=== PATIENT | female | born 1995 | race Asian ===

== ENCOUNTER 2023-01-30 18:21 | Observation (INO) | payer OTHER ==
[2023-01-30 18:30] VITALS: BMI 19.2
[2023-01-30 19:59] LABS: VENOUS O2 SATURATION 84.4 % (70-80); VENOUS PCO2 37.4 mmHg (38-52); VENOUS PH 7.38 (7.310-7.410)
[2023-01-30 20:15] LABS: CHLORIDE 110 mmol/L (98-107); POTASSIUM 3.9 mmol/L (3.5-5.1); SODIUM 139 mmol/L (136-145)
[2023-01-30 20:17] LABS: CALCIUM 8.9 mg/dL (8.5-10.1)
[2023-01-30 20:18] LABS: ALBUMIN 4.1 g/dl (3.4-5.0); ANION GAP 5 MMOL/L (8-16); BLOOD UREA NITROGEN 7.6 mg/dL (7-18); CO2 24 mmol/L (21-32); GLUCOSE,RANDOM 96 mg/dL (74-106); MAGNESIUM 2.1 mg/dL (1.8-2.4)
[2023-01-30 20:21] LABS: CREATININE 0.6 mg/dL (0.55-1.3); SGOT/AST 15 U/L (15-37); SGPT/ALT 23 U/L (13-61)
[2023-01-30 20:22] LABS: BILIRUBIN,TOTAL 0.2 mg/dL (0.2-1); TOT PROT 7.9 g/dl (6.4-8.2)
[2023-01-30 20:24] LABS: ALK PHOS 55 U/L (45-117)
[2023-01-30] MEDS ORDERED: ACETAMINOPHEN INJECTION 100 ML IVPB ONE (20:55)
[2023-01-30] MEDS ORDERED: KETOROLAC TROMETHAMINE 30 MG/1 ML VIAL ONE (20:55)
[2023-01-30] MEDS ORDERED: ACETAMINOPHEN 1000 MG/100 ML BAG IVPB ONE (20:56)
[2023-01-30] MEDS ORDERED: KETOROLAC TROMETHAMINE 15 MG/ML VIAL IVPUSH ONE (20:56)
[2023-01-30 20:59] LABS: EPI CELLS 10 /uL (0-25.1); HYALINE CASTS 0 /uL (0-3.1); PH,URINE 6.5 (5.0-8.0); URINE APPEARANCE CLEAR; URINE BACTERIA 101 /uL (0-1359); URINE BILIRUBIN NEGATIVE (NEGATIVE); URINE COLOR YELLOW; URINE GLUCOSE (UA) NEGATIVE (NEGATIVE); URINE KETONE NEGATIVE (NEGATIVE); URINE LEUK ESTERASE TRACE (NEGATIVE); URINE NITRITE NEGATIVE (NEGATIVE); URINE PROTEIN NEGATIVE (NEGATIVE); URINE RBC 1536 /uL (0-23.9); URINE UROBILINOGEN 0.2 mg/dL (0.2-1.0); URINE WBC 47 /uL (0-25.8)
[2023-01-30 21:22] LABS: BASO % 0.5 % (0-2.0); EOS % 0.8 % (0-4.5); HEMATOCRIT 33.5 % (32.4-45.2); HEMOGLOBIN 11.1 GM/dL (10.7-15.3); LYMPH % 37.8 % (8-40); MCH 26.8 pg (25.7-33.7); MEAN CELL VOLUME 81.1 fl (80-96); MONO % 5.5 % (3.8-10.2); NEUT % 55.4 % (42.8-82.8); PLATELET COUNT 215 10^3/uL (134-434); RBC 4.13 M/mm3 (3.60-5.2); RDW 14.9 % (11.6-15.6)
[2023-01-30 22:14] LABS: ERYTHROCYTE SEDIMENTATION RATE 10 mm/hr (0-20)
[2023-01-31 02:53] VITALS: RESP 18
[2023-01-31 10:37] LABS: BASO % 0.8 % (0-2.0); EOS % 1.4 % (0-4.5); HEMATOCRIT 32.5 % (32.4-45.2); HEMOGLOBIN 10.9 GM/dL (10.7-15.3); LYMPH % 36.5 % (8-40); MCHC 33.6 g/dl (32.0-36.0); MEAN CELL VOLUME 80.4 fl (80-96); MEAN PLT VOLUME 9.8 fl (7.5-11.1); MONO % 5.8 % (3.8-10.2); NEUT % 55.5 % (42.8-82.8); PLATELET COUNT 211 10^3/uL (134-434); RBC 4.05 M/mm3 (3.60-5.2); RDW 14.8 % (11.6-15.6); WHITE BLOOD COUNT 5.1 K/mm3 (4.0-10.0)
[2023-01-31 11:01] LABS: POTASSIUM 3.7 mmol/L (3.5-5.1)
[2023-01-31 11:05] LABS: CALCIUM 8.7 mg/dL (8.5-10.1)
[2023-01-31 11:06] LABS: ALBUMIN 3.7 g/dl (3.4-5.0); BLOOD UREA NITROGEN 9.6 mg/dL (7-18); MAGNESIUM 2.3 mg/dL (1.8-2.4)
[2023-01-31 11:08] LABS: CREATININE 0.6 mg/dL (0.55-1.3); PHOSPHOROUS 3.6 mg/dL (2.5-4.9)
[2023-01-31 11:09] LABS: TOT PROT 7.1 g/dl (6.4-8.2)
[2023-01-31 11:10] LABS: BILIRUBIN,TOTAL 0.4 mg/dL (0.2-1)
[2023-02-01 06:58] VITALS: TEMP 98
[2023-02-01] MEDS ORDERED: ACETAMINOPHEN 1000 MG/100 ML BAG IVPB PRN (07:57)
[2023-02-01] MEDS ORDERED: GABAPENTIN 300 MG CAPSULE PO SCH (10:00)
[2023-02-01 10:11] LABS: BASO % 0.6 % (0-2.0); EOS % 1.3 % (0-4.5); HEMATOCRIT 33.7 % (32.4-45.2); HEMOGLOBIN 11.5 GM/dL (10.7-15.3); LYMPH % 39.5 % (8-40); MCH 27.5 pg (25.7-33.7); MCHC 34.1 g/dl (32.0-36.0); MEAN CELL VOLUME 80.6 fl (80-96); MEAN PLT VOLUME 9.6 fl (7.5-11.1); MONO % 4.4 % (3.8-10.2); NEUT % 54.2 % (42.8-82.8); PLATELET COUNT 220 10^3/uL (134-434); RBC 4.18 M/mm3 (3.60-5.2); RDW 14.8 % (11.6-15.6)
[2023-02-01 10:24] LABS: CHLORIDE 112 mmol/L (98-107); POTASSIUM 3.9 mmol/L (3.5-5.1); SODIUM 141 mmol/L (136-145)
[2023-02-01 10:28] LABS: ANION GAP 7 MMOL/L (8-16); BLOOD UREA NITROGEN 8.4 mg/dL (7-18); CALCIUM 8.8 mg/dL (8.5-10.1); CO2 22 mmol/L (21-32); GLUCOSE,RANDOM 128 mg/dL (74-106)
[2023-02-01 10:32] LABS: CREATININE 0.6 mg/dL (0.55-1.3)
[2023-02-01] MEDS ORDERED: SODIUM CHLORIDE 500 ML IV STA (12:17)
[2023-02-01 15:07] VITALS: BP 99/61; PULSE 62
[2023-02-01] MEDS ORDERED: NORTRIPTYLINE HCL 25 MG CAPSULE PO SCH (22:00)
== END 2023-02-01 15:05 | disposition home or self-care (01) ==
LOC: JER 18:21 → JERBED 22:45 → J5S 01-31 02:38
PROVIDERS: ADMIT Internal Medicine; ATTEND Internal Medicine
PROC: 3E033NZ Introduction of Analgesics, Hypnotics, Sedatives into Peripheral Vein, Percutaneous Approach (ICD-10-PCS; principal; 2023-01-30)
PROC: 3E0333Z Introduction of Anti-inflammatory into Peripheral Vein, Percutaneous Approach (ICD-10-PCS; 2023-01-30)
PROC: 3E0337Z Introduction of Electrolytic and Water Balance Substance into Peripheral Vein, Percutaneous Approach (ICD-10-PCS; 2023-01-30)
DX: R20.0 Anesthesia of skin (principal); R20.2 Paresthesia of skin
CPT/HCPCS: 0241U-QW; 36415; 70553-TC; 72156-TC; 80048; 80053; 81003; 82803; 83735; 84100; 84443; 84703; 85025; 85651; 85730; 86038; 86140; 86225; 86235; 86431; 86618; 93005; 93010; 96374; 96375; 96376; 99285-25; A9579; G0378

== ENCOUNTER 2023-04-04 14:20 | Emergency (ER) | payer OTHER ==
[2023-04-04 14:26] VITALS: BP 99/60; PULSE 84; RESP 18; TEMP 98.3; BMI 18.8
[2023-04-04 15:34] LABS: BASO % 0.5 % (0-2.0); EOS % 0.8 % (0-4.5); HEMATOCRIT 34.6 % (32.4-45.2); HEMOGLOBIN 11.2 GM/dL (10.7-15.3); LYMPH % 36.6 % (8-40); MCH 26.5 pg (25.7-33.7); MCHC 32.5 g/dl (32.0-36.0); MEAN CELL VOLUME 81.5 fl (80-96); MONO % 5.7 % (3.8-10.2); NEUT % 56.4 % (42.8-82.8); PLATELET COUNT 223 10^3/uL (134-434); RBC 4.24 M/mm3 (3.60-5.2); RDW 13.9 % (11.6-15.6); WHITE BLOOD COUNT 6.7 K/mm3 (4.0-10.0)
[2023-04-04 15:44] LABS: POTASSIUM 3.9 mmol/L (3.5-5.1)
[2023-04-04 15:48] LABS: ALBUMIN 3.9 g/dl (3.4-5.0); BLOOD UREA NITROGEN 10.8 mg/dL (7-18); CALCIUM 8.7 mg/dL (8.5-10.1)
[2023-04-04 15:51] LABS: CREATININE 0.6 mg/dL (0.55-1.3)
[2023-04-04 15:53] LABS: BILIRUBIN,TOTAL 0.3 mg/dL (0.2-1); TOT PROT 7.5 g/dl (6.4-8.2)
== END 2023-04-04 17:51 | disposition home or self-care (01) ==
LOC: JER 14:20
DX: O99.611 Diseases of the digestive system complicating pregnancy, first trimester (principal); K59.01 Slow transit constipation; O21.9 Vomiting of pregnancy, unspecified; R14.0 Abdominal distension (gaseous); O26.891 Other specified pregnancy related conditions, first trimester; R63.0 Anorexia; Z3A.01 Less than 8 weeks gestation of pregnancy
CPT/HCPCS: 36415; 80053; 84702; 84703; 85025; 87086; 87186; 99283-25

== ENCOUNTER 2023-10-06 17:58 | Emergency (ER) | payer OTHER ==
[2023-10-06 18:04] VITALS: BMI 21.0
[2023-10-06] MEDS ORDERED: ACETAMINOPHEN 1000 MG/100 ML BAG IVPB ONE (19:56)
[2023-10-06] MEDS ORDERED: LACTATED RINGERS SOLUTION 1,000 ML/1,000 ML INFUS.BAG IV ONE (19:56)
[2023-10-06] MEDS ORDERED: ACETAMINOPHEN INJECTION 100 ML IVPB ONE (20:07)
[2023-10-06 20:31] LABS: BASO % 0.3 % (0-2.0); EOS % 0.8 % (0-4.5); HEMATOCRIT 33.8 % (32.4-45.2); HEMOGLOBIN 11.2 GM/dL (10.7-15.3); LYMPH % 21.7 % (8-40); MCH 27.8 pg (25.7-33.7); MCHC 33.2 g/dl (32.0-36.0); MEAN CELL VOLUME 83.7 fl (80-96); MEAN PLT VOLUME 7.3 fl (7.5-11.1); MONO % 7.4 % (3.8-10.2); NEUT % 69.8 % (42.8-82.8); PLATELET COUNT 388 10^3/uL (134-434); RBC 4.03 M/mm3 (3.60-5.2); RDW 14.8 % (11.6-15.6); WHITE BLOOD COUNT 8.7 K/mm3 (4.0-10.0)
[2023-10-06 20:36] LABS: INR 1.01 (0.83-1.09); PROTHROMBIN TIME (PATIENT) 11.7 SEC (9.7-13.0)
[2023-10-06 20:39] LABS: ACTIVATED PTT 27.9 SECONDS (25.2-36.5)
[2023-10-06 20:55] LABS: POTASSIUM 4.1 mmol/L (3.5-5.1)
[2023-10-06 20:57] LABS: ALBUMIN 2.4 g/dl (3.4-5.0); BLOOD UREA NITROGEN 3.8 mg/dL (7-18); CALCIUM 8.6 mg/dL (8.5-10.1); MAGNESIUM 2.1 mg/dL (1.8-2.4)
[2023-10-06 20:59] LABS: CREATININE 0.3 mg/dL (0.55-1.3)
[2023-10-06 21:01] LABS: BILIRUBIN,TOTAL 0.2 mg/dL (0.2-1); TOT PROT 6.9 g/dl (6.4-8.2)
[2023-10-06] MEDS ORDERED: LACTATED RINGERS SOLUTION 1000 ML INFUS.BAG IV ONE (22:10)
[2023-10-06 22:41] LABS: URINE APPEARANCE CLEAR; URINE BILIRUBIN NEGATIVE (NEGATIVE); URINE COLOR YELLOW; URINE GLUCOSE (UA) NEGATIVE (NEGATIVE); URINE KETONE NEGATIVE (NEGATIVE); URINE LEUK ESTERASE 2+ (NEGATIVE); URINE NITRITE NEGATIVE (NEGATIVE); URINE PROTEIN NEGATIVE (NEGATIVE); URINE UROBILINOGEN 0.2 mg/dL (0.2-1.0)
[2023-10-06] MEDS ORDERED: METOCLOPRAMIDE HCL INJECTION 10 MG/2 ML VIAL IVPB ONE (23:16)
[2023-10-06 23:29] LABS: EPI CELLS 5.1 /uL (0-25.1); HYALINE CASTS 0.14 /uL (0-3.1); URINE BACTERIA 152 /uL (0-1359); URINE WBC 124.3 /uL (0-25.8)
[2023-10-06] MEDS ORDERED: METOCLOPRAMIDE HCL INJECTION 10 MG/2 ML VIAL ONE (23:30)
[2023-10-06] MEDS ORDERED: NITROFURANTOIN MONOHYD/M-CRYST 100 MG CAPSULE PO ONE (23:37)
[2023-10-07] MEDS ORDERED: NITROFURANTOIN MACROCRYSTAL 50 MG CAPSULE (FP) ONE (00:06)
[2023-10-07 01:49] VITALS: BP 105/76; PULSE 87; RESP 20; TEMP 97.7
== END 2023-10-07 01:05 | disposition home or self-care (01) ==
LOC: JER 17:58
PROC: 3E033NZ Introduction of Analgesics, Hypnotics, Sedatives into Peripheral Vein, Percutaneous Approach (ICD-10-PCS; principal; 2023-10-06)
PROC: 3E033GC Introduction of Other Therapeutic Substance into Peripheral Vein, Percutaneous Approach (ICD-10-PCS; 2023-10-06)
PROC: 3E0337Z Introduction of Electrolytic and Water Balance Substance into Peripheral Vein, Percutaneous Approach (ICD-10-PCS; 2023-10-06)
DX: O98.513 Other viral diseases complicating pregnancy, third trimester (principal); U07.1 COVID-19; O23.43 Unspecified infection of urinary tract in pregnancy, third trimester; O26.893 Other specified pregnancy related conditions, third trimester; R11.0 Nausea; R19.7 Diarrhea, unspecified; R07.89 Other chest pain; R09.81 Nasal congestion; R53.81 Other malaise; R51.9 Headache, unspecified; J06.9 Acute upper respiratory infection, unspecified; R05.9 Cough, unspecified; R43.8 Other disturbances of smell and taste; Z3A.30 30 weeks gestation of pregnancy
CPT/HCPCS: 0241U-QW; 36415; 71046-TC-FY; 80053; 81003; 83735; 85025; 85610; 85730; 87077; 87086; 93005; 93010; 99285-25

== ENCOUNTER 2024-03-08 16:56 | Emergency (ER) | payer OTHER ==
[2024-03-08 17:03] VITALS: PULSE 73; RESP 18; TEMP 98.5; BMI 20.1
[2024-03-08 17:31] VITALS: BP 104/63
[2024-03-08] MEDS: SODIUM CHLORIDE 0.9% 500 ML INFUS.BAG IV ONE (18:06)
[2024-03-08 18:11] LABS: BASO % 0.6 % (0-2.0); EOS % 0.7 % (0-4.5); HEMATOCRIT 31.6 % (32.4-45.2); HEMOGLOBIN 10.2 GM/dL (10.7-15.3); LYMPH % 33.6 % (8-40); MCH 24.5 pg (25.7-33.7); MCHC 32.3 g/dl (32.0-36.0); MEAN CELL VOLUME 75.7 fl (80-96); MONO % 4.5 % (3.8-10.2); NEUT % 60.6 % (42.8-82.8); PLATELET COUNT 325 10^3/uL (134-434); RBC 4.18 M/mm3 (3.60-5.2); RDW 15.2 % (11.6-15.6); WHITE BLOOD COUNT 6.9 K/mm3 (4.0-10.0)
[2024-03-08 18:29] LABS: POTASSIUM 3.7 mmol/L (3.5-5.1)
[2024-03-08 18:30] LABS: CALCIUM 8.9 mg/dL (8.5-10.1)
[2024-03-08 18:31] LABS: BLOOD UREA NITROGEN 7.9 mg/dL (7-18); MAGNESIUM 2.2 mg/dL (1.8-2.4)
[2024-03-08 18:34] LABS: CREATININE 0.6 mg/dL (0.55-1.3)
[2024-03-08 18:36] LABS: BILIRUBIN,TOTAL 0.2 mg/dL (0.2-1); TOT PROT 7.7 g/dl (6.4-8.2)
== END 2024-03-08 19:37 | disposition home or self-care (01) ==
LOC: JER 16:56
DX: R42 Dizziness and giddiness (principal); R11.0 Nausea; R53.1 Weakness; R20.0 Anesthesia of skin; R20.2 Paresthesia of skin; Z20.822 Contact with and (suspected) exposure to COVID-19
CPT/HCPCS: 0241U-QW; 36415; 80053; 83735; 85025; 99283-25

== ENCOUNTER 2024-07-23 12:32 | Emergency (ER) | payer OTHER ==
[2024-07-23 12:50] VITALS: BP 96/65; PULSE 84; RESP 18; TEMP 98.3; BMI 20.1
[2024-07-23] MEDS ORDERED: ACETAMINOPHEN INJECTION 100 ML ONE (13:40)
[2024-07-23] MEDS: ACETAMINOPHEN 1000 MG/100 ML BAG IVPB ONE (13:46)
[2024-07-23 13:47] LABS: BASO % 0.9 % (0-2.0); EOS % 0.8 % (0-4.5); HEMATOCRIT 33.6 % (32.4-45.2); HEMOGLOBIN 10.6 GM/dL (10.7-15.3); LYMPH % 39.5 % (8-40); MCH 23.5 pg (25.7-33.7); MCHC 31.5 g/dl (32.0-36.0); MEAN CELL VOLUME 74.7 fl (80-96); MEAN PLT VOLUME 8.8 fl (7.5-11.1); MONO % 6.3 % (3.8-10.2); NEUT % 52.5 % (42.8-82.8); PLATELET COUNT 270 10^3/uL (134-434); RDW 15.6 % (11.6-15.6); WHITE BLOOD COUNT 5.9 K/mm3 (4.0-10.0)
[2024-07-23 13:52] LABS: PH,URINE 5.5 (5.0-8.0); URINE APPEARANCE CLEAR; URINE BILIRUBIN NEGATIVE (NEGATIVE); URINE COLOR YELLOW; URINE GLUCOSE (UA) NEGATIVE (NEGATIVE); URINE KETONE NEGATIVE (NEGATIVE); URINE LEUK ESTERASE NEGATIVE (NEGATIVE); URINE NITRITE NEGATIVE (NEGATIVE); URINE PROTEIN NEGATIVE (NEGATIVE); URINE UROBILINOGEN 0.2 mg/dL (0.2-1.0)
[2024-07-23 14:08] LABS: INR 0.99 (0.83-1.09); PROTHROMBIN TIME (PATIENT) 11.4 SEC (9.7-13.0)
[2024-07-23 14:18] LABS: POTASSIUM 4.2 mmol/L (3.5-5.1)
[2024-07-23 14:21] LABS: ALBUMIN 3.8 g/dl (3.4-5.0); BLOOD UREA NITROGEN 6.5 mg/dL (7-18)
[2024-07-23 14:24] LABS: CREATININE 0.7 mg/dL (0.55-1.3)
[2024-07-23 14:25] LABS: BILIRUBIN,TOTAL 0.2 mg/dL (0.2-1); TOT PROT 7.5 g/dl (6.4-8.2)
[2024-07-23 14:30] LABS: CALCIUM 8.3 mg/dL (8.5-10.1)
[2024-07-23 16:50] LABS: HIV INTERPRETATION NEGATIVE (NEGATIVE)
[2024-07-23] MEDS ORDERED: metroNIDAZOLE 250 MG TABLET ONE (18:58)
[2024-07-23] MEDS ORDERED: DOXYCYCLINE HYCLATE 100 MG CAPSULE PO ONE (18:59)
[2024-07-23] MEDS ORDERED: KETOROLAC TROMETHAMINE 15 MG/ML VIAL ONE (18:59)
[2024-07-23] MEDS ORDERED: cefTRIAXone SODIUM 1 GM VIAL ONE (18:59)
[2024-07-23] MEDS: KETOROLAC TROMETHAMINE 15 MG/ML VIAL IVPUSH ONE (19:17)
[2024-07-23] MEDS: DOXYCYCLINE HYCLATE 100 MG CAPSULE PO ONE (19:18)
[2024-07-23] MEDS: metroNIDAZOLE 250 MG TABLET PO ONE (19:18)
== END 2024-07-23 19:20 | disposition home or self-care (01) ==
LOC: JER 12:32
PROC: 3E033NZ Introduction of Analgesics, Hypnotics, Sedatives into Peripheral Vein, Percutaneous Approach (ICD-10-PCS; principal; 2024-07-23)
PROC: 3E0333Z Introduction of Anti-inflammatory into Peripheral Vein, Percutaneous Approach (ICD-10-PCS; 2024-07-23)
PROC: 3E02329 Introduction of Other Anti-infective into Muscle, Percutaneous Approach (ICD-10-PCS; 2024-07-23)
DX: N83.202 Unspecified ovarian cyst, left side (principal); N73.9 Female pelvic inflammatory disease, unspecified; R10.31 Right lower quadrant pain; R11.2 Nausea with vomiting, unspecified; M54.50 Low back pain, unspecified; M54.6 Pain in thoracic spine
CPT/HCPCS: 36415; 74177-TC; 76705-TC; 76830-TC; 80053; 81003; 83690; 84703; 85025; 85610; 85730; 86803; 86850; 86900; 86901; 87081; 87086; 87389; 87491; 87591; 99285-25; J0131; Q9967

== ENCOUNTER 2024-09-17 13:41 | Emergency (ER) | payer OTHER ==
[2024-09-17 14:05] VITALS: BP 93/61; PULSE 84; RESP 16; TEMP 98.1; BMI 21.0
[2024-09-17 15:24] LABS: BASO % 0.6 % (0-2.0); EOS % 0.7 % (0-4.5); HEMOGLOBIN 10.1 GM/dL (10.7-15.3); LYMPH % 38.9 % (8-40); MCH 23.2 pg (25.7-33.7); MCHC 31.6 g/dl (32.0-36.0); MEAN CELL VOLUME 73.5 fl (80-96); MEAN PLT VOLUME 9.5 fl (7.5-11.1); MONO % 5.7 % (3.8-10.2); NEUT % 54.1 % (42.8-82.8); PLATELET COUNT 239 10^3/uL (134-434); RBC 4.36 M/mm3 (3.60-5.2); RDW 16.9 % (11.6-15.6); URINE APPEARANCE CLEAR; URINE BILIRUBIN NEGATIVE (NEGATIVE); URINE COLOR YELLOW; URINE GLUCOSE (UA) NEGATIVE (NEGATIVE); URINE KETONE NEGATIVE (NEGATIVE); URINE LEUK ESTERASE NEGATIVE (NEGATIVE); URINE NITRITE NEGATIVE (NEGATIVE); URINE PROTEIN NEGATIVE (NEGATIVE); URINE UROBILINOGEN 0.2 mg/dL (0.2-1.0); WHITE BLOOD COUNT 4.9 K/mm3 (4.0-10.0)
[2024-09-17] MEDS ORDERED: ACETAMINOPHEN INJECTION 100 ML ONE (15:24)
[2024-09-17] MEDS ORDERED: ONDANSETRON 4 MG/2 ML VIAL ONE (15:24)
[2024-09-17] MEDS: ACETAMINOPHEN 1000 MG/100 ML BAG IVPB ONE (15:33)
[2024-09-17] MEDS: ONDANSETRON 4 MG/2 ML VIAL IVPUSH ONE (15:34)
[2024-09-17] MEDS: SODIUM CHLORIDE 0.9% 500 ML INFUS.BAG IV ONE (15:37)
[2024-09-17 16:06] LABS: CALCIUM 8.8 mg/dL (8.5-10.1)
[2024-09-17 16:07] LABS: ALBUMIN 3.8 g/dl (3.4-5.0); BLOOD UREA NITROGEN 6.8 mg/dL (7-18)
[2024-09-17 16:10] LABS: CREATININE 0.6 mg/dL (0.55-1.3)
[2024-09-17 16:12] LABS: BILIRUBIN,TOTAL 0.2 mg/dL (0.2-1); TOT PROT 7.4 g/dl (6.4-8.2)
[2024-09-17 16:43] LABS: HIV INTERPRETATION NEGATIVE (NEGATIVE)
[2024-09-17] MEDS ORDERED: ONDANSETRON *ODT* 4 MG TABLET ONE (17:40)
[2024-09-17] MEDS: ONDANSETRON *ODT* 4 MG TABLET SL ONE (17:43)
== END 2024-09-17 19:42 | disposition home or self-care (01) ==
LOC: JER 13:41
PROC: 3E033NZ Introduction of Analgesics, Hypnotics, Sedatives into Peripheral Vein, Percutaneous Approach (ICD-10-PCS; principal; 2024-09-17)
PROC: 3E033GC Introduction of Other Therapeutic Substance into Peripheral Vein, Percutaneous Approach (ICD-10-PCS; 2024-09-17)
DX: R10.2 Pelvic and perineal pain (principal)
CPT/HCPCS: 36415; 74177-TC; 80053; 81003; 84703; 85025; 86803; 87077; 87086; 87389; 93005; 93010; 99285-25; J0131; Q0162; Q9967

== ENCOUNTER 2024-09-19 08:14 | Emergency (ER) | payer OTHER ==
[2024-09-19 08:18] VITALS: BP 99/66; PULSE 76; RESP 18; TEMP 97.6; BMI 27.9
[2024-09-19] MEDS ORDERED: ACETAMINOPHEN 500 MG TABLET (FP) ONE (09:35)
[2024-09-19] MEDS ORDERED: MAG HYDROX/AL HYDROX/SIMETH 30 ML UNIT-DOSE CUP ONE (09:36)
[2024-09-19] MEDS: MAG HYDROX/AL HYDROX/SIMETH -MYLANTA- ORAL SUSPENSION PO ONE (09:39)
[2024-09-19] MEDS: ACETAMINOPHEN 500 MG TABLET (FP) PO ONE (09:39)
[2024-09-19] MEDS: FAMOTIDINE 20 MG TABLET PO ONE (09:40)
[2024-09-19] MEDS ORDERED: FAMOTIDINE 20 MG TABLET ONE (09:42)
== END 2024-09-19 10:24 | disposition home or self-care (01) ==
LOC: JER 08:14
DX: R10.13 Epigastric pain (principal); R10.30 Lower abdominal pain, unspecified; R11.0 Nausea; R10.2 Pelvic and perineal pain
CPT/HCPCS: 99283-25